=== PATIENT | female | born 1965 | race Caucasian/White ===

== ENCOUNTER → 2016-08-16 | Outpatient (CLI) | payer OTHER | LOC: NUC 13:13 | DX: Z09 Encounter for follow-up examination after completed treatment for conditions other than malignant neoplasm (principal); Z78.0 Asymptomatic menopausal state; N91.2 Amenorrhea, unspecified ==

== ENCOUNTER 2018-04-16 05:31 | Inpatient (IN) | payer OTHER ==
[2018-04-09 10:50] LABS: HEMOGLOBIN 12.9 gm/dL (12.0-15.0); RBC 4.18 mil/uL (4.20-5.00); RDW 14.1 % (10.5-14.5); WBC 4.4 thou/uL (4.0-11.0)
[2018-04-09 10:53] LABS: ALBUMIN 3.4 g/dL (3.4-5.0); CALCIUM 9.1 mg/dL (8.5-10.1); CREATININE 0.7 mg/dL (0.6-1.0); POTASSIUM 4.3 mmol/L (3.5-5.1)
[2018-04-09 10:54] LABS: PROTIME 9.5 Seconds (9.3-11.4)
[2018-04-09 10:54] LABS: URINE BILIRUBIN NEGATIVE (Negative); URINE BLOOD NEGATIVE (Negative); URINE CLARITY CLEAR; URINE COLOR YELLOW; URINE GLUCOSE-RANDOM* NEGATIVE (Negative); URINE KETONES NEGATIVE (Negative); URINE LEUKOCYTES-REFLEX NEGATIVE (Negative); URINE NITRITE-REFLEX NEGATIVE (Negative); URINE PROTEIN (DIPSTICK) NEGATIVE (Negative); URINE UROBILINOGEN 0.2 E.U./dl (0.2-1.0)
[~2018-04-16] VITALS: Ht 172.7 cm; Wt 118.4 kg
--- NOTE | ~2018-04-16 | EKG ---
[address] [address] ELECTROCARDIOGRAM REPORT Name: GRISELDA GARCIA Room #: PRE IN ..#: [id number] Admission: Attend Phys: Chandler Gomez MD Discharge: Date of : 67 Report #: [id number] THIS REPORT FOR: //name// [facility] Test Date: 2018-04-09 Test Time: 10:52:08 Pat Name: GRISELDA GARCIA Department: Room: Gender: F [employer] V[employer]: YU ROGERS : 1965 Requested By: Chandler Gomez Order Number: [id number] MD: Mickey Tsang Measurements Intervals [place] Rate: 71 P: 39 MT: 155 QRS: 51 QRSD: 83 T: 41 QT: 407 QTc: 443 Interpretive Statements Sinus rhythm Normal tracing No previous ECG available for comparison Electronically Signed On 04-10-2018 8:22:53 [employer] by Mickey Tsang [email or web address] <ELECTRONICALLY SIGNED> By: Mickey Tsang MD, [facility] 04/10/18 0822 1052 1052 Mickey Tsang MD, FACC /EPI
--- NOTE | ~2018-04-16 | O ---
[facility] [place] [address] OPERATIVE REPORT Name: GRISELDA GARCIA Room #: 423-1 [facility] IN M.R.#: [id number] Admission: 04/16/18 Attend Phys: Chandler Gomez MD Discharge: 04/18/18 Date of : 67 Report #: [id number] THIS REPORT FOR: //name// CC: Mayi Gomez DATE OF SERVICE: 04/16/2018 PREOPERATIVE DIAGNOSES: 1. Severe left hip osteoarthritis. 2. Morbid obesity with a body mass index of 40. POSTOPERATIVE DIAGNOSES: 1. Severe left hip osteoarthritis. 2. Morbid obesity with a body mass index of 40. PROCEDURE: Left total hip arthroplasty. SURGEON: Chandler Gomez MD. LEGISLATIVE AIDE: None. ANESTHESIA: General endotracheal. IMPLANTS: [employer] size 12 high offset Synergy press-fit stem with a size 52 R3 acetabular cup and a size 36+0 Oxinium head. ESTIMATED BLOOD LOSS: 200 mL. COMPLICATIONS: None. SPECIMENS: None. CONDITION UPON LEAVING THE OPERATING ROOM: Stable. INDICATIONS FOR PROCEDURE: The patient is a 53-year-old female with severe left hip osteoarthritis. She had failed conservative measures for this and after discussion with her, she elected for left total hip arthroplasty. DESCRIPTION OF PROCEDURE: Risks, benefits, alternatives, complications were discussed in detail with the patient including but not limited to risk of anesthesia, risk of damage to nerves, arteries, blood vessels, risk for infection, bleeding, risk for leg length discrepancy, instability and need for reoperation. Informed consent was obtained from the patient. The left hip was appropriately marked in the preoperative holding area. IV Ancef was given for preoperative antibiotics. She was brought to the operating room and placed in [address] [address] OPERATIVE REPORT Name: GRISELDA GARCIA Room #: 423-1 [facility] IN M.R.#: [id number] Admission: 04/16/18 Attend Phys: Chandler Gomez MD Discharge: 04/18/18 Date of : 67 Report #: [id number] the supine position on the operating room table. General anesthesia was induced without complication. She was then placed in the right lateral decubitus position with the left hip uppermost. Left hip and lower extremity were then prepped and draped in normal sterile fashion. Timeout was performed properly identifying the patient and procedure as well as the instrumentation and implants. All in the operating room were in agreement. Standard posterior approach to the hip was made with 10 blade through the skin. Dissection was taken down to the fascia with Bovie cautery. Frazier elevator was used to clean the fascia and a fascial incision was made with a fresh 10 blade. This was taken proximally and distally with curved Hicks scissor. Charnley retractor was placed. Trochanteric bursa was taken down with Bovie cautery. Piriformis tendon was identified, tagged and taken down with Bovie. Short external rotators were also taken down with Bovie cautery. Capsulotomy was made and capsule ends were tagged for later repair. The hip was dislocated and there was severe osteoarthritic change of the femoral head. Femoral neck cut was made 1 cm proximal to lesser trochanter based on preoperative templating and the femoral head was removed. Deep acetabular retractors were placed. The labrum was removed sharply. Pulvinar was removed with Bovie cautery. Acetabulum was then sequentially reamed up to a size 52, at which point, there was excellent bleeding cancellous bone. Final size 52 R3 acetabular cup was placed and seated. One screw was placed for backup fixation and the polyethylene liner was placed. Attention was turned to the femur. This was reamed and broached up to a size 12, at which point, a size 12 broach was stable. This was trialed with a high offset neck and a 36+0 head. Hip was reduced, taken through range of motion, found to be stable, found to have equal leg lengths. Hip was dislocated and broach was removed. A final size 12 high offset Synergy press fit stem was placed. This was trialed again with a 36+0 head. Hip was reduced, taken through range of motion, found to be stable, found to have equal leg lengths. Hip was dislocated one last time and a final size 36+0 Oxinium head was placed. Hip was reduced, taken through range of motion, found to be stable, found to have equal leg lengths. The hip was thoroughly irrigated with normal saline. A gram of vancomycin was placed deep in the joint. A periarticular injection consisting of morphine, ropivacaine, epinephrine and Toradol was placed around the hip joint capsule. The capsule and piriformis were repaired with 0 FiberWire. Fascia was closed with 0 Vicryl, skin was closed with 2-0 Vicryl, 3-0 Monocryl. Dermabond and a CIERA dressing was applied. The patient tolerated this procedure well and went to recovery room under care of anesthesia postoperatively. <ELECTRONICALLY SIGNED> By: Chandler Gomez MD 04/19/18 0837 0529 0559 Chandler Gomez MD /nt
[~2018-04-16 05:31] MED LIST: CYMBALTA60 MG PO; ENDOCET 5-3251 EACH PO; MOBIC15 MG PO; MULTIVITAMINS1 EAC7 PO; NAPROSYN500 MG PO; OXYCODONE HCL E10 MG PO; PROAIR HFA8.5 GM INH; PROGESTERONE TOP; TRAMADOL 50 MG50 MG PO; XANAX1 MG PO
[2018-04-16 12:19] VITALS: BP 141/76
[2018-04-16 19:45] VITALS: BP 136/66
[2018-04-17 04:15] VITALS: BP 136/71
[2018-04-17 04:27] VITALS: BP 136/71
[2018-04-17 05:22] LABS: HEMATOCRIT 28.9 % (37.0-47.0); HEMOGLOBIN 9.5 gm/dL (12.0-15.0); MCH 29.7 pg (26.0-34.0); MCHC 32.8 g/dL (28.0-37.0); MCV 90.3 fL (80.0-100.0); RBC 3.2 mil/uL (4.20-5.00); RDW 13.8 % (10.5-14.5); WBC 11.3 thou/uL (4.0-11.0)
[2018-04-17 07:40] VITALS: BP 156/67
[2018-04-17] MEDS ORDERED: TRI-BUFFERED A325 M1 PO (17:20)
[2018-04-17] MEDS ORDERED: NEURONTIN 300300 M1 PO (17:20)
[2018-04-17 20:44] VITALS: BP 144/63
[2018-04-18 04:46] LABS: HEMATOCRIT 23.3 % (37.0-47.0); MCHC 34.1 g/dL (28.0-37.0); RBC 2.56 mil/uL (4.20-5.00); RDW 14.4 % (10.5-14.5); WBC 5.2 thou/uL (4.0-11.0)
[2018-04-18 05:01] VITALS: BP 138/60
[2018-04-18 07:04] VITALS: BP 138/60
[2018-04-18 07:47] VITALS: BP 152/77
[2018-04-18] MEDS ORDERED: MS CONTIN15 MG PO (09:20)
[2018-04-18] MEDS ORDERED: PERCOCET 10-321 EACH PO (09:20)
== END 2018-04-18 10:30 | disposition home or self-care (01) | DRG 470 ==
LOC: TBA 05:31 → 4E 05:31 → PRE 05:56 → 4E 16:54 → ENTRNSPT 04-18 10:00 → EDTRNSPTSTS 04-18 10:21 → 4E 04-18 10:30
PROVIDERS: Orthopaedic Surgery
PROC: 0SRB06A Replacement of Left Hip Joint with Oxidized Zirconium on Polyethylene Synthetic Substitute, Uncemented, Open Approach (ICD-10-PCS; principal; 2018-04-16)
DX: M16.12 Unilateral primary osteoarthritis, left hip (principal); Z68.41 Body mass index [BMI] 40.0-44.9, adult; E66.01 Morbid (severe) obesity due to excess calories; Z79.899 Other long term (current) drug therapy; Z79.82 Long term (current) use of aspirin
CPT/HCPCS: 10783; 50010; 50101; 50382; 50414; 51771; 53000; 53078; 53368; 54118; 56524; 56527; 56528; 56530; 57095; 57103; 62110; 62900; 70005